=== PATIENT | female | born 1970 | race Caucasian/White ===

== ENCOUNTER 2017-07-12 07:36 | Outpatient (CLI) | payer BC ==
--- NOTE | 2017-07-12 10:00 | CT ---
CT ABDOMEN WITH AND WITHOUT CONTRAST CT PELVIS WITH AND WITHOUT CONTRAST: 07/12/2017 HISTORY: A 47-year-old female with R10.30 (lower abdominal pain) and R19.00 (palpable abdominal mass). TECHNIQUE: This was ordered specifically to be performed with and without contrast, and this patient's particula r insurance policy requires performing the exam exactly as ordered. Oral contrast: Administered. IV contrast: Isovue-370 99 mL. Pre-contrast scan and venous phase scan of the entire abdomen and pelvis. Coronal reconstructions of venous phase scan. COMPARISON: None. FINDINGS: On the pre-contrast scan, faint, patchy, ill-defined regions of moderately high attenuation are prese nt throughout the bilateral upper, mid, and lower pole calyces, and also a small amount in the left r enal pelvis. These do not appear to be in the real pyramids and, therefore, are not nephrocalcinosis , yet are not discrete to indicate renal calculi. The patient reportedly did not receive any IV iodi nated contrast prior to this CT, and therefore, their etiology is uncertain, but this does resemble e xcreted iodinated contrast. There is no nephrolithiasis. There is no bladder calculus. The urinary bladder is mildly distended and has minimal mural thickening, nonspecific. The uterus is located to the left of midline. There is a 2.5 x 2 x 2 cm right adnexal cyst. Minimal free fluid in the cul-d e-sac. Otherwise, no free fluid or free air in the abdominal cavity. No small bowel dilation. No s igns of acute colonic diverticulitis or colitis. The lung bases are grossly clear. No retroperitone al, mark hepatis, mesenteric, or iliac chain lymphadenopathy. The abdominal aorta, adrenals, pancre as, liver, and spleen are normal. IMPRESSION: 1. A 2.5 x 2 x 2 cm right ovarian cyst. 2. Distended urinary bladder. 3. Otherwise no acute process or neoplastic tumor. POS: [facility]
== END 2017-07-12 07:37 | disposition home or self-care (01) ==
LOC: CT 07:36 → SCSCT 07:37
PROVIDERS: ATTEND Family Medicine
DX: R10.30 Lower abdominal pain, unspecified (principal); R19.00 Intra-abdominal and pelvic swelling, mass and lump, unspecified site; N83.201 Unspecified ovarian cyst, right side; N32.89 Other specified disorders of bladder
CPT/HCPCS: 74178

== ENCOUNTER 2018-01-12 09:04 | Outpatient (CLI) | payer BC | END 2018-01-12 09:05 | disposition home or self-care (01) | LOC: BICMAMMO 09:04 | PROVIDERS: ATTEND Obstetrics & Gynecology | DX: Z12.31 Encounter for screening mammogram for malignant neoplasm of breast (principal) | CPT/HCPCS: 77063; 77067 ==

== ENCOUNTER 2019-03-08 11:00 | Outpatient (CLI) | payer BC ==
--- NOTE | 2019-03-08 11:16 | MMO ---
Bilateral MAMMO Bilat Screen [facility]. CLINICAL HISTORY: Patient is 48 years old and is seen for screening. The patient has no family history of breast cancer. The patient has no personal history of cancer. VIEWS: The views performed were: bilateral craniocaudal with tomosynthesis and bilateral mediolateral oblique with tomosynthesis. FILMS COMPARED: The present examination has been compared to prior imaging studies performed at [facility] on 09/12/2014, 09/18/2015, 10/21/2016 and 01/12/2018. MAMMOGRAM FINDINGS: There are scattered fibroglandular densities. There are no suspicious masses, suspicious calcifications, or new areas of architectural distortion. IMPRESSION: THERE IS NO MAMMOGRAPHIC EVIDENCE OF MALIGNANCY. A ROUTINE FOLLOW-UP MAMMOGRAM IN 1 YEAR IS RECOMMENDED. THE RESULTS OF THIS EXAM WERE SENT TO THE PATIENT. ACR BI-RADS Category 1 - Negative MAMMOGRAPHY NOTE: 1. A negative mammogram report should not delay a biopsy if a dominant of clinically suspicious mass is present. 2. Approximately 10% to 15% of breast cancers are not detected by mammography. 3. Adenosis and dense breasts may obscure an underlying neoplasm. Reported by: LATISHA GEE MD Electonically Signed: [id number]
== END 2019-03-08 11:01 | disposition home or self-care (01) ==
LOC: BICMAMMO 11:00
PROVIDERS: ATTEND Obstetrics & Gynecology
DX: Z12.31 Encounter for screening mammogram for malignant neoplasm of breast (principal)
CPT/HCPCS: 77063; 77067

== ENCOUNTER 2020-01-24 08:44 | Outpatient (CLI) | payer BC ==
--- NOTE | 2020-01-24 14:09 | NM ---
NUCLEAR MEDICINE BRAIN IMAGING: HISTORY: Tremor, unspecified TECHNIQUE: A Sarahi scan with axial tomographic images of the brain was obtained 3 hours following the intravenous administration of 4.6mCi I-123 Ioflupane. The patient was pretreated with 130 mg of oral potassium iodide 1 hour prior to the injection. FINDINGS: There is loss of normal symmetric comma shaped shaped uptake in the striata bilaterally. IMPRESSION: Parkinsonian syndrome. (Parkinsonian syndromes include Parkinson's disease, multiple system atrophy, progressive supranuclea r palsy, dementia with Lewy bodies and cortical basal degeneration).
== END 2020-01-24 08:45 | disposition home or self-care (01) ==
LOC: NM 08:44
PROVIDERS: ATTEND Psychiatry & Neurology Neurology
DX: R25.1 Tremor, unspecified (principal); G20 Parkinson's disease
CPT/HCPCS: 78803; A9584

== ENCOUNTER 2020-04-27 08:33 | Outpatient (CLI) | payer BC ==
--- NOTE | 2020-04-27 09:00 | MMO ---
Bilateral MAMMO Bilat Screen [facility]. CLINICAL HISTORY: Patient is 49 years old and is seen for screening. The patient has no family history of breast cancer. The patient has no personal history of cancer. VIEWS: The views performed were: bilateral craniocaudal with tomosynthesis and bilateral mediolateral oblique with tomosynthesis. FILMS COMPARED: The present examination has been compared to prior imaging studies performed at [facility] on 09/18/2015, 10/21/2016, 01/12/2018 and 03/08/2019. This study has been interpreted with the assistance of computer-aided detection. MAMMOGRAM FINDINGS: There are scattered fibroglandular densities. There are no suspicious masses, suspicious calcifications, or new areas of architectural distortion. IMPRESSION: THERE IS NO MAMMOGRAPHIC EVIDENCE OF MALIGNANCY. A ROUTINE FOLLOW-UP MAMMOGRAM IN 1 YEAR IS RECOMMENDED. THE RESULTS OF THIS EXAM WERE SENT TO THE PATIENT. ACR BI-RADS Category 1 - Negative MAMMOGRAPHY NOTE: 1. A negative mammogram report should not delay a biopsy if a dominant of clinically suspicious mass is present. 2. Approximately 10% to 15% of breast cancers are not detected by mammography. 3. Adenosis and dense breasts may obscure an underlying neoplasm. Reported by: HAILEE BERG MD Electonically Signed: [id number]
== END 2020-04-27 08:34 | disposition home or self-care (01) ==
LOC: BICMAMMO 08:33
PROVIDERS: ATTEND Obstetrics & Gynecology
DX: Z12.31 Encounter for screening mammogram for malignant neoplasm of breast (principal)
CPT/HCPCS: 77063; 77067

== ENCOUNTER 2021-07-19 08:21 | Outpatient (CLI) | payer BC | END 2021-07-19 08:22 | disposition home or self-care (01) | LOC: BICMAMMO 08:21 | PROVIDERS: ATTEND Family Medicine | DX: Z12.31 Encounter for screening mammogram for malignant neoplasm of breast (principal) | CPT/HCPCS: 77063; 77067 ==

== ENCOUNTER 2025-03-20 09:06 | Outpatient (CLI) | payer BC | END 2025-03-20 09:07 | disposition home or self-care (01) | LOC: BICMAMMO 09:06 | PROVIDERS: ATTEND Family Medicine | DX: Z12.31 Encounter for screening mammogram for malignant neoplasm of breast (principal) | CPT/HCPCS: 77063; 77067 ==